=== PATIENT | male | born 1950 | race Caucasian/White ===

== ENCOUNTER 2025-03-12 07:07 | Outpatient (REF) | payer MEDICARE, SELFPAY ==
--- NOTE | ~2025-03-12 | CT_ITS ---
CLINICAL HISTORY: POLYP OF NASAL CAVITY CT sinuses without contrast Comparison: None provided Findings: Near-complete opacification of the right maxillary sinus secondary to mucosal thickening and a large mucous retention cyst. Complete opacification of the left sphenoid sinus. Mucosal thickening is present within the remaining paranasal sinuses. There is narrowing of the right ostiomeatal unit. Left ostiomeatal unit is patent. There has been a prior osteotomy within the medial wall of the left maxillary sinus. There is hypertrophy of the bilateral inferior turbinates, right more pronounced than left. There are bilateral middle turbinate alicia bullosa. There may be a small polyp within the left nasal airway in association with the left middle turbinate. There is mild deviation of the nasal septum to the right. The orbits are normal. No acute fractures. IMPRESSION: 1. Inflammatory changes of the paranasal sinuses as described. 2. Possible small left-sided nasal polyp. This document has been electronically signed by: Arcelia Zamarripa MD on 03/13/2025 14:56:03
--- OUTSIDE RECORDS SUMMARY | 2025-03-12 07:11 | XMS_ITS | Data Portability ---
Author Organization ROGELIO Paige s, [address] Address [address] [place] [address] Assessment No assessment recorded. Plan of Treatment Reminders Order Date Submit Date Provider Last Modified By Organization Details Last Modified Time Details Appointments None recorded. Lab None recorded. Referral None recorded. Procedures None recorded. Surgeries None recorded. Imaging None recorded. Medication Orders doxycycline hyclate 100 mg capsule 2024 025 [id number], [address] [place], [address], 14:23:04 Patient TargetsNo targets recorded. Patient Instructions Encounter Date Encounter Id Patient Instructions Last Modified By Organization Details Last Modified Time 09/23/2024 [id number] Acute Sinusitis: Care Instructions [email or web address] Not available 09/23/2024 14:19:44 You can take ove r the counter tylenol or ibuprofen per package instructions for the pain. See printed instructions. Follow-up with your doctor if no improvement in 1 week. Seek Emergency Medical evaluation for any worsening symptoms. [email or web address] Not available 09/23/2024 14:23:01 Sinusitis is an infection of the lining of the sinus cavities in your head. Sinusitis often follows a cold. It causes pain and pressure in your head and face. In most cases, sinusitis gets better on its own in 1 to 2 weeks. But some mild symptoms may last for several weeks. Sometimes antibiotics are needed. if you are having problems. It's also a good idea to know your test results and keep a list of the medicines you take. How can you care for yourself at home? Take an zsuq-aal-jvedlrq pain medicine. Avoid Ibuprofen, Aleve and Aspirin if . If the doctor prescribed antibiotics, take them as directed. Do not stop taking them just because you feel better. You need to take the full course of antibiotics. Be careful when taking moob-zct-bkiubrm cold or influenza (flu) medicines and Tylenol at the same time. Many of these medicines have acetaminophen, which is Tylenol. Read the labels to make sure that you are not taking more than the recommended dose. Too much acetaminophen (Tylenol) can be harmful. Breathe warm, moist air from a steamy shower, a hot bath, or a sink filled with hot water. Avoid cold, dry air. Using a humidifier in your home may help. Follow the directions for cleaning the machine. Use saline (saltwater) nasal washes. This can help keep your nasal passages open and wash out mucus and bacteria. You can buy saline nose drops at a grocery store or drugstore. Or you can make your own at home by adding 1 teaspoon (5 millilitres) of salt and 1 teaspoon (5 millilitres) of baking soda to 2 cups (500 mL) of distilled water. If you make your own, fill a bulb syringe with the solution, insert the tip into your nostril, and squeeze gently. Blow your nose. Put a hot, wet towel or a warm gel pack on your face 3 or 4 times a day for 5 to 10 minutes each time. Try a decongestant nasal spray like oxymetazoline (Drixoral). Do not use it for more than 3 days in a row. Using it for more than 3 days can make your congestion worse. [email or web address] Not available 09/23/2024 14:22:50 Reason for Referral None Reported. Problems Name Problem SNOMED Code Status Onset Date Resolution Date Notes Provider Name and Address Organization Details Recorded Time Essential hypertension 04164045 Active ROGELIO Rivas [facility] 14:03:42 Problem Notes None recorded. Procedures Surgical History Date Name Laterality Status Provider Name and Address Organization Details Recorded Time 4 hernia repair completed Naty MERCADO - [facility] 09/23/2024 14:15:18 nasal polypectomy completed Naty MERCADO - [facility] 09/23/2024 14:15:00 Imaging Results None recorded. Procedure Notes None recorded. Medical Equipment None Reported. Allergies No known drug allergies Medications Name Sig Start Date Stop Date Status Note LastModified by Organization Details LastModified Time amoxicillin 500 mg capsule TAKE FOUR CAPSULES BY MOUTH 1 HOUR PRIOR TO PROEDURE 09/23 completed Not Available Not Available Not Available latanoprost 0.005 % eye drops [address]ACE[address] DROP IN EACH EYE ONCE DAILY IN THE EVENING active Not Available Not Available No t Available acetaminoph en 325 mg tablet TAKE 2 TABLETS BY MOUTH EVERY 4 HOURS,X7 DAYS, NEEDED FOR PAIN 09/23 completed Not Available Not Available Not Available doxycycline hyclate 100 mg capsule Take 1 capsule twice a day by oral route as directed for 10 days, for sinus infection . 2024 active Not Available Not Available Not Avai lable ibuprofen 800 mg tablet TAKE ONE TABLET BY MOUTH EVERY 8 HOURS IF NEEDED FOR PAIN active Not Available Not Available No t Available acetaminoph en 500 mg tablet TAKE ONE TABLET EVERY 6 HOURS NEEDED PAIN 09/23 completed Not Available Not Available Not Available amoxicillin 500 mg tablet TAKE ONE TABLET BY MOUTH EVERY 6 HOURS UNTIL GONE 09/23 completed Not Available Not Available Not Available lansoprazol e 30 mg capsule,del ayed release TAKE 1 CAPSULE DAILY 09/23 completed Not Available Not Available Not Available brimonidine 0.2 % eye drops PLACE 1 DROP IN EACH EYE TWO TIMES A DAY 09/23 completed Not Available Not Available Not Available oxycodone 5 mg tablet TAKE 1 TABLET BY MOUTH EVERY 6 HOURS FOR 3 DAYS NEEDED FOR PAIN 09/23 completed Not Available Not Available Not Available azithromyci n 500 mg tablet TAKE ONE TABLET BY MOUTH EVERY DAY UNTIL GONE 09/23 completed Not Available Not Available Not Available olmesartan 40 mg-hydrochl orothiazide 12.5 mg tablet TAKE 1 TABLET DAILY active Not Available Not Available No t Available tadalafil 10 mg tablet TAKE 1 TABLET BY MOUTH DAILY,INS TR:1 HOUR BEFORE SEXUAL ACTIVITY 09/23 completed Not Available Not Available Not Available Vitals Date Recorded Body height Body mass index (BMI) Body weight Body temperature Respiratory rate Heart rate Oxygen saturation Oxygen saturation in Arterial blood by Pulse oximetry Systolic blood pressure Diastolic blood pressure Provider Name and Address Organization Details Last Updated DateTime 170.18 cm 29.3 kg/m2 62525.7 7 g 98.2 [degF] 16 /min 85 /min 97 % 97 % 102 mm[Hg] 66 mm[Hg] Naty Lynch [facility] 14:08:07 Social History Question Answer Notes LastModified by Organizat ion Details LastModified Time Tobacco Smoking Status Never Smoker ROGELIO Rivas [facility] 09/23/2024 14:08:39 Have You Had A Flu Shot This Season? Yes [email or web address] Information not available 09/23/2024 If No, Would You Like A Flu Shot Today? Yes [email or web address] Information not available 09/23/2024 What Was The Date Of Your Most Recent Tobacco Screening? 09/23/2024 [email or web address] Information not available 09/23/2024 What Is Your Relationship Status? Information not available 09/23/2024 Have You Recently Traveled Abroad? No [email or web address] Information not available 09/23/2024 Sex: Unknown Functional Status Question Answer Note LastModified by Organizat ion Details LastModified Time How many times per week do you consume alcohol? 1-2 times per week Wine [email or web address] Information not available 09/23/2024 Do you use any illicit or recreational drugs? No [email or web address] Information not available 09/23/2024 Do you or have you ever used any other forms of tobacco or nicotine? No [email or web address] Information not available 09/23/2024 What is your level of alcohol consumption? Occasional [email or web address] Information not available 09/23/2024 Are you currently employed? No Retired at age 60 [email or web address] Information not available 09/23/2024 Mental Status None recorded. Family History Relationship Description Onset Age of this Age Resolved Age Notes LastModified by Organization Details LastModified Time Father No current problems or disability [email or web address] Not available 12/2024 14:04:15 Mother No current problems or disability [email or web address] Not available 12/2024 14:04:15 Medical History No medical history recorded. Immunizations Vaccine Type Date Status Note Provider Nam e and Address Organization Details Recorded Time zoster recombinant 3 completed ROGELIO Rivas [facility] 09/23/2024 14:00:48 zoster recombinant 2 completed Naty Ortiz null, [place] - [facility] 09/23/2024 14:00:48 Influenza, high-dose, quadrivalent, PF 2 completed Naty Ortiz null, PA - [facility] 09/23/2024 14:00:48 COVID-19, mRNA, LNP-S, PF, 100 mcg/0.5mL dose or 50 mcg/0.25mL dose 1 completed Naty rOtiz null, PA - [facility] 09/23/2024 14:00:48 COVID-19, mRNA, LNP-S, PF, 30 mcg/0.3 mL dose 1 completed Naty Ortiz null, PA - [facility] 09/23/2024 14:00:48 COVID-19, mRNA, LNP-S, PF, 30 mcg/0.3 mL dose 1 completed Naty Ortiz null, PA - [facility] 09/23/2024 14:00:48 COVID-19, mRNA, LNP-S, bivalent, PF, 50 mcg/0.5 mL or 25mcg/0.25 mL dose 2 completed Naty Ortiz null, PA - [facility] 09/23/2024 14:00:48 COVID-19, mRNA, LNP-S, PF, 50 mcg/0.5 mL 4 completed Naty Ortiz null, PA - [facility] 09/23/2024 14:00:48 pneumococcal polysaccharide PPV23 9 completed Naty Ortiz null, PA - [facility] 09/23/2024 14:00:48 Tdap 4 completed Naty Ortiz null, PA - [facility] 09/23/2024 14:00:48 Pneumococcal conjugate PCV 13 7 completed Naty Ortiz null, PA - [facility] 09/23/2024 14:00:48 zoster live 5 completed Naty Ortiz null, PA - [facility] 09/23/2024 14:00:48 Influenza, high-dose, trivalent, PF 9 completed Naty Ortiz null, PA - [facility] 09/23/2024 14:00:48 Influenza, high-dose, trivalent, PF 0 completed Naty Ortiz null, PA - [facility] 09/23/2024 14:00:48 Influenza, high-dose, trivalent, PF 5 completed Naty Ortiz null, PA - [facility] 09/23/2024 14:00:48 Influenza, high-dose, trivalent, PF 4 completed Naty Ortiz null, PA - [facility] 09/23/2024 14:00:48 Influenza, high-dose, trivalent, PF 6 completed Naty Ortiz null, PA - [facility] 09/23/2024 14:00:48 Influenza, split virus, trivalent, preservative 1 completed Naty Ortiz null, PA - [facility] 09/23/2024 14:00:48 Past Encounters Encounter ID Performer Location Encounter Start Date Encounter Closed Date Diagnosis/Indication Diagnosis SNOMED-CT Code Diagnosis ICD10 Code Diagnosis Note [id number] [facility] [address] [address] 03/27/2022 11:01:02 03/27/2022 11:57:07 [id number] [facility] [address] [address] [address] 01/18/2021 12:46:38 01/18/2021 14:06:19 [id number] SKYLAR WINKLER MD [address] [address] [address] 09/23/2024 13:46:30 09/23/2024 14:24:36 Acute sinusitis 36406643 J01.90 Health Concerns Section Related Observation LastModified by Organization Detai ls LastModified Time None Recorded Concern Status LastModified by Organization Details LastModified Time None Recorded Advance Directives Directive None Recorded Payers Insurance Date Sequence Insurance Name Policy Number Policy Krishna Covered Member ID Krishna Member ID Guarantor Name 10/14/[address] [facility] [place] (MEDICARE REPLACEMENT HMO) [id number] Adal Emmanuel [id number] Adla Emmanuel Notes Date Note Type Note Provider Name and Address Organization Details Recorded Time 09/23/2024 text/html 74 y m c/o left side sinus pressure and throbbing pain that radiates across his forehead to his right inner ear x 1 week. Also reports light headedness and dizziness described as a room spinning sensation when he stands up from a seated position that is progressively getting worse. Hx of sinus infections and polyp removal procedure from his left maxillary sinus about 25yrs ago. He is taking Aleve and Ibuprofen alternating every 6-8hrs with most recent taken last night at 10pm with no relief in sx. No fever, chills, vision changes, runny nose, cough, nausea or vomiting. SKYLAR IWNKLER MD [address] [place], [place] [address], [address], [place] - [facility] 10/14/2024 19:35:26
== END 2025-03-12 07:08 | disposition home or self-care (01) ==
LOC: HO.CT 07:07
PROVIDERS: PCP Internal Medicine; Visit Provider Otolaryngology
DX: J33.0 Polyp of nasal cavity (principal); G44.219 Episodic tension-type headache, not intractable
CPT/HCPCS: 70486

== ENCOUNTER → 2025-03-12 07:09 | Outpatient (BNV) | payer MEDICARE, SELFPAY | PROVIDERS: PCP Internal Medicine; Visit Provider Radiology Diagnostic Radiology | DX: J33.0 Polyp of nasal cavity (principal) | CPT/HCPCS: 70486 ==